=== PATIENT | male | born 1965 | race Caucasian/White ===

== ENCOUNTER 2016-12-16 06:13 | Emergency (ER) | payer BC ==
--- NOTE | 2016-12-16 06:39 | ER Document Report ---
ED GI/ - General Mode of Arrival: Ambulatory Information source: Patient TRAVEL OUTSIDE OF THE [place] IN LAST 30 DAYS: No - HPI Patient complains to provider of: Flank pain - Right Onset: Just prior to arrival Timing/Duration: Sudden Location: RLQ, Right flank Associated symptoms: None Similar symptoms previously: Yes <AWILDA RAYA - Last Filed: 12/16/16 15:54> <FAM MILES - Last Filed: 12/18/16 11:23> - General Chief Complaint: Abdominal Pain Stated Complaint: ABDOMINAL PAIN Time Seen by Provider: 12/16/16 06:32 Notes: Patient is a 51-year-old male that presents to the emergency department today with complaints of right-sided flank pain radiating around to RLQ. Patient states he has a history of kidney stones in the past and this feels identical to his previous stones. Patient states he was able to pass these stones without intervention. Patient states he was awoken from sleep around 0230 with the pain. Patient states he urinated and the pain became tolerable so he went back to sleep. Patient states he woke up again at 0400 because he was "going fishing with a geovanny this morning". Patient states he drank a cup of coffee and shortly after developed increasing right flank pain again. Patient denies any nausea or vomiting. (AWILDA RAYA) - Related Data Allergies/Adverse Reactions: No Known Allergies Allergy (Unverified 10/13/13 08:04) Past Medical History - General Information source: Patient, [facility] Records - Social History Smoking Status: Unknown if Ever Smoked Frequency of alcohol use: None Drug Abuse: None Lives with: Family Family History: Reviewed & Not Pertinent - Past Medical History Cardiac Medical History: Reports: Hx Hypertension Pulmonary Medical History: Reports: Hx COPD Endocrine Medical History: Reports: Hx Diabetes Mellitus Type 2 Renal/ Medical History: Reports: Hx Kidney Stones Surgical Hx: Negative - Immunizations Hx Diphtheria, Pertussis, Tetanus Vaccination: No <AWILDA RAYA - Last Filed: 12/16/16 15:54> Review of Systems - Review of Systems Constitutional: No symptoms reported EENT: No symptoms reported Cardiovascular: No symptoms reported Respiratory: No symptoms reported Gastrointestinal: denies: Nausea, Vomiting Genitourinary: See HPI, Flank pain - right Male Genitourinary: No symptoms reported Musculoskeletal: No symptoms reported Skin: No symptoms reported Hematologic/Lymphatic: No symptoms reported Neurological/Psychological: No symptoms reported -: Yes All other systems reviewed and negative <AWILDA RAYA - Last Filed: 12/16/16 15:54> Physical Exam <DOROTAKISHOREAWILDA - Last Filed: 12/16/16 15:54> <JDFAM - Last Filed: 12/18/16 11:23> - Vital signs Vitals: Pulse Resp BP Pulse Ox 55 L 20 157/93 H 98 12/16/16 09:41 12/16/16 09:41 12/16/16 09:41 12/16/16 09:41 - Notes Notes: Physical Exam: General: Alert, appears well. HEENT: Normocephalic. Atraumatic. PERRL. Extraocular movements intact. Oropharynx clear. Neck: Supple. Non-tender. Respiratory: No respiratory distress. Clear and equal breath sounds bilaterally. Cardiovascular: Regular rate and rhythm. Abdominal: Normal Inspection. Non-tender. No distension. Normal Bowel Sounds. Back: Non-tender. No deformity or step off. No flank tenderness with percussion. Extremities: Moves all four extremities. Upper extremities: Normal inspection. Normal ROM. Lower extremities: Normal inspection. No edema. Normal ROM. Neurological: Normal cognition. AAOx4. Normal speech. Psychological: Normal affect. Normal Mood. Skin: Warm. Dry. Normal color. (AWILDA RAYA) Course - Laboratory Result Diagrams: 12/16/16 06:25 <AWILDA RAYA - Last Filed: 12/16/16 15:54> - Laboratory Result Diagrams: 12/16/16 06:25 <FAM MILES - Last Filed: 12/18/16 11:23> - Re-evaluation Re-evalutation: 12/16/16 14:30 Presents emergency department chief complaint of right flank pain radiating down the right lower quadrant woke him up at 230 this morning. He said it came and went in and he actually went to his bodies has to go fishing around 4 AM and it recurred he received Toradol prior to my seeing him from that front and he says his pain is resolved right now. He reports a history of kidney stones that have not required a neurologist or any intervention. I see that he was here was 7 years ago he also had flank pain at that time that the CT of his this nonspecific hydronephrosis but no stone. He denies any fevers chills cough chest pain shortness of breath he does not have abdominal pain nausea vomiting diarrhea or urinary symptoms. He denies any low back pain or history of trauma. On examination he is well-appearing nontoxic no acute distress and states he is currently pain-free. Abdomen is soft no acute reproducible tenderness guarding rebound or rigidity. Femoral pulses are symmetrical peripheral pulses in distal extremities are palpable good perfusion no lower extremity edema calf tenderness swelling. He has no reproducible tenderness on the mid thoracic or lumbar spine. No paralumbar tenderness or reproducible flank tenderness bilaterally. Also has no skin lesions or evidence of shingles. Urinalysis is negative for infection patient declines any further medication. CT scan shows chronic hydro-nephrosis but no active stone. At this time he does not have urinary tract infection or active stone I do not think that this is an abdominal aortic aneurysm appendicitis or any other dangerous intra-abdominal pathology however I do want him to follow-up with primary care physician in 2-3 days gave him 80 to go pack of pain medications with the lives at home and discussed specifically with him and friends at the bedside reasons for ED return sooner (FAM MILES) - Vital Signs Vital signs: Temp Pulse Resp BP Pulse Ox 55 L 20 157/93 H 98 12/16/16 09:41 12/16/16 09:41 12/16/16 09:41 12/16/16 09:41 - Laboratory Laboratory results interpreted by me: 12/16/16 12/16/16 06:25 06:40 Carbon Dioxide 21 L BUN 24 H Glucose 172 H Urine Ketones TRACE H Urine Blood MODERATE H Urine Ascorbic Acid 40 H Discharge <AWILDA RAYA - Last Filed: 12/16/16 15:54> <FAM MILES - Last Filed: 12/18/16 11:23> - Discharge Clinical Impression: Flank pain Condition: Stable Disposition: HOME, SELF-CARE Additional Instructions: Flank Pain We weren't able to prove an exact cause for your flank pain. Pain in the flank can be caused by a muscle strain or spasm. Sometimes a kidney stone causes pain, but can't be found on our tests. Infection in the kidney should be evident on a urine test. Early shingles can occasionally cause flank pain, without the rash that proves the diagnosis. On rare occasions, disease of the pancreas, aorta, spleen, or colon can create pain in the flank. At this time, there's no evidence of a dangerous condition, and it seems safe for you to be at home. If the pain goes away and does not come back, no further testing will be needed. If pain persists, or becomes more severe, we may need to repeat some tests or order additional new testing. Blood in the urine, urgency to urinate frequently, and pain that radiates to the groin can indicate a kidney stone. Fever may mean that the pain is due to infection, either of the kidney or the colon (diverticulitis). If your pain is early shingles, you should develop an eruption of blisters in the painful area within a few days. Call the doctor or return if you have pain that is spreading or becoming more severe, pain that does not resolve with time, fever, or any other new symptoms. Referrals: [facility] [Provider Group] (call to be seen in follow up in 2-3 days return to er sooner for increasing worsening or new symptoms) Scribe Attestation: 12/16/16 07:31 I personally performed the services described in the documentation reviewed the documentation recorded by my scribe in my presence and it accurately and completely records my words and actions (FAM MILES) Scribe Documentation - Scribe Written by Jerman:: Jerman Adames, 12/16/2016 0721 acting as scribe for :: Jd <AWILDA RAYA - Last Filed: 12/16/16 15:54>
[2016-12-16 07:03] LABS: ANION GAP 12 (5-19); BLOOD UREA NITROGEN 24 mg/dL (7-20); CALCIUM 9.1 mg/dL (8.4-10.2); CARBON DIOXIDE 21 mmol/L (22-30); CHLORIDE 106 mmol/L (98-107); CREATININE RESULT 1.13 mg/dL (0.52-1.25); GLUCOSE 172 mg/dL (75-110); SODIUM 139.3 mmol/L (137-145)
--- NOTE | 2016-12-16 07:13 | RADIOLOGY REPORT (SQ) ---
EXAM DESCRIPTION: CT ABD/PELVIS NO ORAL OR IV COMPLETED DATE/TIME: 12/16/2016 6:59 am REASON FOR STUDY: flank pain COMPARISON: 02/04/2016. 02/02/2013. TECHNIQUE: CT scan of the abdomen and pelvis performed without intravenous or oral contrast. Images reviewed with lung, soft tissue, and bone windows. Reconstructed coronal and sagittal MPR images revi ewed. All images stored on PACS. All CT scanners at this facility use dose modulation, iterative reconstruction, and/or weight based d osing when appropriate to reduce radiation dose to as low as reasonably achievable (ALARA). [facility]: Dose Right [facility]: CareDose [facility]: Dose Right [facility]: Teradose 4D [facility]: [employer] RADIATION DOSE: Up-to-date CT equipment and radiation dose reduction techniques were employed. CTDIv ol: 16.5 mGy. DLP: 893 mGy-cm.mGy. LIMITATIONS: None. FINDINGS: LOWER CHEST: No significant findings. No nodules or infiltrates. NON-CONTRASTED LIVER, SPLEEN, ADRENALS: Evaluation limited by lack of IV contrast. No identified sign ificant masses. Moderate hepatic steatosis. PANCREAS: No masses. No peripancreatic inflammatory changes. GALLBLADDER: No identified stones by CT criteria. No inflammatory changes to suggest cholecystitis. RIGHT KIDNEY AND URETER: Punctate right nephrolithiasis. Mild chronic dilation of the right renal co llecting system since 2012. Mild right perinephric fat stranding. LEFT KIDNEY AND URETER: No suspicious masses. Assessment limited by lack of IV contrast. No signifi cant calcifications. No hydronephrosis or hydroureter. Mild perinephric fat stranding. AORTA AND RETROPERITONEUM: No aneurysm. No retroperitoneal masses or adenopathy. BOWEL AND PERITONEAL CAVITY: No obvious masses or inflammatory changes. No free fluid. APPENDIX: Normal. PELVIS, BLADDER, AND ABDOMINAL WALL:No abnormal masses. No free fluid. Bladder normal. Hysterectomy. BONES: Moderate desiccated disc bulge at the L4-S1 levels. OTHER: No other significant finding. IMPRESSION: Mild chronic dilation of the right renal collecting system. No acute findings. TECHNICAL DOCUMENTATION: JOB ID: [id number] Quality ID # 436: Final reports with documentation of one or more dose reduction techniques (e.g., Au tomated exposure control, adjustment of the mA and/or kV according to patient size, use of iterative reconstruction technique) 2011 [employer]- All Rights Reserved
[2016-12-16 07:19] LABS: APPEARANCE,URINE SLIGHTLY-CLOUDY; BILIRUBIN,URINE NEGATIVE (NEGATIVE); GLUCOSE, URINE NEGATIVE (NEGATIVE); KETONES,URINE TRACE mg/dL (NEGATIVE); LEUKOCYTE ESTERASE,URINE NEGATIVE (NEGATIVE); NITRITE,URINE NEGATIVE (NEGATIVE); PROTEIN,URINE NEGATIVE (NEGATIVE); URINE SPECIFIC GRAVITY 1.026; UROBILINOGEN,URINE NEGATIVE mg/dL (<2.0)
[2016-12-16 07:24] LABS: BACTERIA,URINE TRACE /HPF; RBC,URINE 20-30 /HPF
[2016-12-16] MEDS ORDERED: HYDROCODONE/ACETAMINOPHEN 5-325 MG 6 TAB/DSPK PO PRN (09:36)
[2016-12-16 09:41] VITALS: BP 157/93
== END 2016-12-16 10:03 | disposition home or self-care (01) ==
LOC: ER 06:13
DX: R10.9 Unspecified abdominal pain (principal); R10.31 Right lower quadrant pain
CPT/HCPCS: 36415; 74176; 80048; 81001; 99284

== ENCOUNTER → 2017-02-19 | Outpatient (CLI) | payer BC ==
--- NOTE | 2017-02-19 18:44 | RADIOLOGY REPORT (SQ) ---
EXAM DESCRIPTION: CT ABD/PELVIS NO ORAL OR IV COMPLETED DATE/TIME: 02/19/2017 6:27 pm REASON FOR STUDY: Unspecified abdominal pain COMPARISON: 12/16/2016 TECHNIQUE: CT scan of the abdomen and pelvis performed without intravenous or oral contrast. Images reviewed with lung, soft tissue, and bone windows. Reconstructed coronal and sagittal MPR images revi ewed. All images stored on PACS. All CT scanners at this facility use dose modulation, iterative reconstruction, and/or weight based d osing when appropriate to reduce radiation dose to as low as reasonably achievable (ALARA). [facility]: Dose Right [facility]: CareDose [facility]: Dose Right [facility]: Teradose 4D [facility]: [employer] RADIATION DOSE: Up-to-date CT equipment and radiation dose reduction techniques were employed. CTDIv ol: 16.4 mGy. DLP: 888 mGy-cm.mGy. LIMITATIONS: None. FINDINGS: LOWER CHEST: No significant findings. No nodules or infiltrates. NON-CONTRASTED LIVER, SPLEEN, ADRENALS: Evaluation limited by lack of IV contrast. No identified sign ificant masses. PANCREAS: No masses. No peripancreatic inflammatory changes. GALLBLADDER: No identified stones by CT criteria. No inflammatory changes to suggest cholecystitis. RIGHT KIDNEY AND URETER: No suspicious masses. Assessment limited by lack of IV contrast. Small non obstructive calculus. There is chronic mild hydronephrosis and hydroureter to the UV junction. No definitive calculus. Noncalcified calculus is possible. Tumor is also differential. LEFT KIDNEY AND URETER: No suspicious masses. Assessment limited by lack of IV contrast. No signifi cant calcifications. No hydronephrosis or hydroureter. AORTA AND RETROPERITONEUM: No aneurysm. No retroperitoneal masses or adenopathy. BOWEL AND PERITONEAL CAVITY: No obvious masses or inflammatory changes. No free fluid. APPENDIX: Normal. PELVIS, BLADDER, AND ABDOMINAL WALL:No abnormal masses. No free fluid. Bladder normal. BONES: No significant findings. OTHER: Chronic mild hydronephrosis and hydroureter IMPRESSION: Chronic mild hydronephrosis without a definitive calculus. Differential is noncalcified stone versus tumor at the right UV junction TECHNICAL DOCUMENTATION: JOB ID: [id number] Quality ID # [id number]: Final reports with documentation of one or more dose reduction techniques (e.g., Au tomated exposure control, adjustment of the mA and/or kV according to patient size, use of iterative reconstruction technique) 2010 [employer]- All Rights Reserved
== END ==
LOC: RAD 18:06
PROVIDERS: ATTEND Physician Assistant
DX: R10.9 Unspecified abdominal pain (principal); N13.30 Unspecified hydronephrosis
CPT/HCPCS: 74176

== ENCOUNTER → 2017-04-10 | Outpatient (CLI) | payer BC ==
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
== END ==
LOC: RAD 15:07
PROVIDERS: ATTEND Urology
DX: R31.0 Gross hematuria (principal)
CPT/HCPCS: 74178; 82565

== ENCOUNTER 2018-09-14 13:35 | Emergency (ER) | payer BC ==
[2018-09-14] MEDS ORDERED: DIPH/PERTUSS(ACELL)/TETANUS VAC/PF 0.5 ML SYR (>=10YO) IM ONE (13:58)
[2018-09-14] MEDS ORDERED: RINGERS SOLUTION,LACTATED 1,000 ML IV ONE (13:58)
[2018-09-14] MEDS ORDERED: ONDANSETRON HCL INJ/PF 4 MG/2 ML SDV IV ONE (13:59)
[2018-09-14] MEDS ORDERED: HYDROMORPHONE HCL INJ/PF 2 MG/ML AMPULE IV ONE ×3 (13:59→17:00)
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
[2018-09-14 19:31] VITALS: BP 156/95
== END 2018-09-14 17:03 | disposition short-term general hospital (02) ==
LOC: ER 13:35
DX: T20.20XA Burn of second degree of head, face, and neck, unspecified site, initial encounter (principal); T20.17XA Burn of first degree of neck, initial encounter; T22.211A Burn of second degree of right forearm, initial encounter; T22.212A Burn of second degree of left forearm, initial encounter; X03.8XXA Other exposure to controlled fire, not in building or structure, initial encounter; Y93.G2 Activity, grilling and smoking food; E11.9 Type 2 diabetes mellitus without complications; I10 Essential (primary) hypertension; Z87.442 Personal history of urinary calculi; Z23 Encounter for immunization
CPT/HCPCS: 96376; 99291; 96361; 90471; 96374; 96375; 90715; J1170; J2405; J7120

== ENCOUNTER 2019-07-26 19:29 | Emergency (ER) | payer SELFPAY ==
[2019-07-26] MEDS ORDERED: NORMAL SALINE 1000 ML 1,000 ML IV ONE ×2 (20:18→20:50)
--- NOTE | 2019-07-26 20:19 | ER Document Report ---
ED Medical Screen (RME) - General Chief Complaint: Chest Pain Stated Complaint: CHEST PAIN.BLURRY VISION,BLOOD PRESSURE ISSUE Time Seen by Provider: 07/26/19 20:07 Primary Care Provider: ALESSANDRA ANN MD [Primary Care Provider] - Follow up as needed Mode of Arrival: Ambulatory Information source: Patient Notes: 53-year-old male presents with complaints of chest pain, nausea, not feeling well, urinary frequency increased thirst blurred vision for the past 2 months worsening for the past couple days. Gives history of diagnosis of diabetes with high blood pressure 5 years ago. Reports he was placed on some medications that shut his kidneys down so he quit taking them. He is not taking any medication now. Reports he is a former smoker quit 5 years ago when he was diagnosed with diabetes and high blood pressure. Accu-Chek done and Pit is 434. I have greeted and performed a rapid initial assessment of this patient. A comprehensive ED assessment and evaluation of the patient, analysis of test results and completion of the medical decision making process will be conducted by additional ED providers. TRAVEL OUTSIDE OF THE [place] IN LAST 30 DAYS: No - Related Data Allergies/Adverse Reactions: No Known Allergies Allergy (Verified 07/26/19 20:05) Past Medical History - Past Medical History Cardiac Medical History: Reports: Hx Hypertension Pulmonary Medical History: Reports: Hx COPD Endocrine Medical History: Reports: Hx Diabetes Mellitus Type 2 Renal/ Medical History: Reports: Hx Kidney Stones. Denies: Hx Peritoneal Dialysis - Immunizations Hx Diphtheria, Pertussis, Tetanus Vaccination: No Physical Exam - Vital signs Vitals: Temp Pulse Resp BP Pulse Ox 98.3 F 84 18 163/96 H 96 07/26/19 19:55 07/26/19 19:55 07/26/19 19:55 07/26/19 19:55 07/26/19 19:55 Course - Vital Signs Vital signs: Temp Pulse Resp BP Pulse Ox 98.3 F 84 18 163/96 H 96 07/26/19 19:55 07/26/19 19:55 07/26/19 19:55 07/26/19 19:55 07/26/19 19:55 Doctor's Discharge - Discharge Referrals: ALESSANDRA ANN MD [Primary Care Provider] - Follow up as needed
--- NOTE | 2019-07-26 20:51 | ER Document Report ---
ED General - General Chief Complaint: Chest Pain Stated Complaint: CHEST PAIN.BLURRY VISION,BLOOD PRESSURE ISSUE Time Seen by Provider: 07/26/19 20:07 Primary Care Provider: ALESSANDRA ANN MD [NO LOCAL MD] - Follow up as needed Mode of Arrival: Ambulatory TRAVEL OUTSIDE OF THE [place] IN LAST 30 DAYS: No - HPI Notes: Patient is a 53-year-old gentleman who presents to the emergency department for evaluation of chest pain, blurred vision, uncontrolled blood pressure, and high blood sugar. The patient has a diagnosis of hypertension and diabetes. He used to be seen by a provider who has since moved out of the area. He states he was treated with medications that caused his "kidneys to fail." He states that since then he has not had any sort of treatment for either these conditions. He states that over the last month or so he has had blurred vision, increased urination, weakness, bilateral arm pain. He states he has had intermittent "grabbing" pains in the left side of his chest. They only last a second. They are not brought about by exertion, not relieved by rest. They happen nearly daily. He states he feels slightly nauseated when they happen but denies any other associated symptoms. - Related Data Allergies/Adverse Reactions: No Known Allergies Allergy (Verified 07/26/19 20:05) Home Medications: None Past Medical History - General Information source: Patient - Social History Smoking Status: Former Smoker Family History: Reviewed & Not Pertinent, Malignancy Patient has suicidal ideation: No Patient has homicidal ideation: No - Past Medical History Cardiac Medical History: Reports: Hx Hypertension Pulmonary Medical History: Reports: Hx COPD Endocrine Medical History: Reports: Hx Diabetes Mellitus Type 2 Renal/ Medical History: Reports: Hx Kidney Stones. Denies: Hx Peritoneal Dialysis - Immunizations Hx Diphtheria, Pertussis, Tetanus Vaccination: No Review of Systems - Review of Systems Constitutional: See HPI EENT: See HPI Cardiovascular: See HPI Respiratory: See HPI Gastrointestinal: See HPI Genitourinary: No symptoms reported Musculoskeletal: See HPI Skin: No symptoms reported Neurological/Psychological: No symptoms reported Physical Exam - Vital signs Vitals: Temp Pulse Resp BP Pulse Ox 98.3 F 84 18 163/96 H 96 07/26/19 19:55 07/26/19 19:55 07/26/19 19:55 07/26/19 19:55 07/26/19 19:55 - Notes Notes: Vital signs reviewed, please refer to chart. Head is normocephalic, atraumatic. Pupils equal round, reactive to light. Neck is supple without meningismus. Heart is regular rate and rhythm. Lungs are clear to auscultation bilaterally. Abdomen is soft, nontender, normoactive bowel sounds throughout. Extremities without cyanosis, clubbing. Posterior calves are nontender. Peripheral pulses are equal. Skin is warm and dry. Patient is awake, alert, oriented x3. Cranial nerves II - XII are grossly intact without focal neurological deficits. Strength is plus 5 out of 5 bilateral upper and lower extremities. Sensation is intact. Reflexes symmetrical. Intact [id number], rapid alternating movements, [id number]. Course - Re-evaluation Re-evalutation: 07/26/19 23:29 Patient presents to the emergency department for evaluation. He has a history of high blood pressure, diabetes, has been off treatment for some time. His symptoms are most consistent with hypoglycemia. He does have elevated blood pressure. His chest pain would be atypical. He certainly, however, has significant risk factors. He was explained to the patient that he needs follow- up in regards to the chest pain, but his work-up. In regards to the possibility of acute coronary syndrome present at this time is negative. He voiced und erstanding to this. Otherwise he is found to be hyperglycemic but not hyperosmolar, normal neurological exam, and not acidotic. His sugar is treated with insulin, fluids. Will start the patient on glipizide and hydrochlorothiazide. He is to follow-up closely with primary care, return to the ED with worsening or new concerning symptoms of any sort. - Vital Signs Vital signs: Temp Pulse Resp BP Pulse Ox 98.3 F 84 13 127/80 H 98 07/26/19 19:55 07/26/19 19:55 07/26/19 23:01 07/26/19 23:01 07/26/19 23:01 - Laboratory Result Diagrams: 07/26/19 21:16 07/26/19 21:16 Laboratory results interpreted by me: 07/26/19 07/26/19 07/26/19 20:01 21:16 22:34 Sodium 133.6 L BUN 26 H Glucose 428 H* POC Glucose 336 H Alkaline Phosphatase 151 H Urine Glucose (UA) >=500 H - Diagnostic Test Radiology reviewed: Reports reviewed Radiology results interpreted by me: 07/26/19 23:31 Chest X-Ray 07/26/19 20:14 IMPRESSION: No active intrathoracic disease. No adverse change copyright 2011 [employer]- All Rights Reserved - EKG Interpretation by Me Additional EKG results interpreted by me: 07/26/19 23:32 Sinus mechanism with a rate of 85 bpm. Normal axis and intervals. No acute ST changes concerning for ischemia or infarction. Discharge - Discharge Clinical Impression: Essential hypertension Hyperglycemia due to type 2 diabetes mellitus Qualifiers: Diabetes mellitus intermediate manager insulin use: without residential use Qualified Code(s): E11.65 - Type 2 diabetes mellitus with hyperglycemia Condition: Stable Disposition: HOME, SELF-CARE Instructions: Chest Pain of Unclear Cause ([facility]), Hyperglycemia ([facility]), Diabetes ([facility]) Additional Instructions: Please take medications as prescribed. Rest, stay well-hydrated. Avoid simple sugars as discussed. You need to follow-up with primary care in 1 to 2 weeks. Please keep a record of your blood pressures, bring them to your first primary care provider appointment. Return to the emergency department if you develop worsening or new concerning symptoms of any sort. Referrals: ALESSANDRA ANN MD [NO LOCAL MD] - Follow up as needed
--- NOTE | 2019-07-26 21:06 | RADIOLOGY REPORT (SQ) ---
EXAM DESCRIPTION: XR CHEST 2 VIEWS COMPLETED DATE/TME: 07/26/2019 20:14 CLINICAL HISTORY: 53 years, Male, cp COMPARISON: October 11, 2014 NUMBER OF VIEWS: 2 TECHNIQUE: LIMITATIONS: None. FINDINGS: Cardiomediastinal silhouette is normal. Mild chronic parenchymal lung change. No consolidation. No effusion or pneumothorax. IMPRESSION: No active intrathoracic disease. No adverse change copyright 2010 [employer]- All Rights Reserved
[2019-07-26 21:09] LABS: APPEARANCE,URINE CLEAR; BILIRUBIN,URINE NEGATIVE (NEGATIVE); COLOR,URINE STRAW; GLUCOSE, URINE >=500 mg/dL (NEGATIVE); KETONES,URINE NEGATIVE (NEGATIVE); LEUKOCYTE ESTERASE,URINE NEGATIVE (NEGATIVE); NITRITE,URINE NEGATIVE (NEGATIVE); PROTEIN,URINE NEGATIVE (NEGATIVE); URINE SPECIFIC GRAVITY 1.028; UROBILINOGEN,URINE NEGATIVE mg/dL (<2.0)
[2019-07-26 21:29] LABS: ABSOLUTE BASOPHILS # (AUTO) 0.1 10^3/uL (0.0-0.2); ABSOLUTE EOSINOPHILS # (AUTO) 0.1 10^3/uL (0.0-0.6); ABSOLUTE LYMPHOCYTES (AUTO) 3.1 10^3/uL (0.5-4.7); ABSOLUTE MONOCYTES (AUTO) 0.5 10^3/uL (0.1-1.4); ABSOLUTE NEUT (AUTO) 3.3 10^3/uL (1.7-8.2); BASOPHILS % (AUTO) 1.4 % (0-2); EOSINOPHILS % (AUTO) 1.3 % (0-6); HEMATOCRIT 44.4 % (37.9-51.0); HEMOGLOBIN 15.3 g/dL (13.5-17.0); LYMPHOCYTES % (AUTO) 43.1 % (13-45); MEAN CORPUSCULAR HEMOGLOBIN 30.8 pg (27.0-33.4); MEAN CORPUSCULAR HGB CONC 34.3 g/dL (32.0-36.0); MEAN CORPUSCULAR VOLUME 90 fl (80-97); MONOCYTES % (AUTO) 7.6 % (3-13); PLATELET COUNT 222 10^3/uL (150-450); RED BLOOD COUNT 4.96 10^6/uL (4.35-5.55); RED CELL DISTRIBUTION WIDTH 12.6 % (11.5-14.0); SEGMENTED NEUTROPHILS % (AUTO) 46.6 % (42-78); TOTAL CELLS COUNTED % (AUTO) 100 %; WHITE BLOOD COUNT 7.1 10^3/uL (4.0-10.5)
[2019-07-26 21:53] LABS: VENOUS BLOOD BASE EXCESS -4.9 mmol/L; VENOUS BLOOD HCO3 20.2 mmol/L (20-32); VENOUS BLOOD PCO2 38.1 mmHg (35-63); VENOUS BLOOD PH 7.34 (7.30-7.42)
[2019-07-26 21:57] LABS: ALBUMIN 4.4 g/dL (3.5-5.0); ALKALINE PHOSPHATASE 151 U/L (38-126); ANION GAP 12 (5-19); ASPARTATE AMINO TRANSFERASE 38 U/L (17-59); BILIRUBIN,DIRECT 0.1 mg/dL (0.0-0.4); BILIRUBIN,TOTAL 0.4 mg/dL (0.2-1.3); BLOOD UREA NITROGEN 26 mg/dL (7-20); CALCIUM 9.8 mg/dL (8.4-10.2); CARBON DIOXIDE 23 mmol/L (22-30); CHLORIDE 99 mmol/L (98-107); POTASSIUM 4.6 mmol/L (3.6-5.0); TOTAL PROTEIN 7.5 g/dL (6.3-8.2)
[2019-07-26 22:09] LABS: GLUCOSE 428 mg/dL (75-110)
[2019-07-26] MEDS ORDERED: HYDROCHLOROTHIAZIDE 25 MG TABLET PO ONE (22:56)
[2019-07-26] MEDS ORDERED: INSULIN REG, HUMAN 100 UNIT/ML 3 ML VIAL (PYX) IV ONE (22:56)
--- NOTE | 2019-07-26 23:37 | EKG REPORT ---
SEVERITY:- BORDERLINE ECG - SINUS RHYTHM PROBABLE LEFT ATRIAL ABNORMALITY : Confirmed by: Lo Montes 26-Jul-2019 23:36:36
[2019-07-27 00:12] VITALS: BP 142/88
== END 2019-07-27 00:21 | disposition home or self-care (01) ==
LOC: ER 19:29
DX: E11.65 Type 2 diabetes mellitus with hyperglycemia (principal); I10 Essential (primary) hypertension; H53.8 Other visual disturbances; R07.9 Chest pain, unspecified; Z87.891 Personal history of nicotine dependence; J44.9 Chronic obstructive pulmonary disease, unspecified
CPT/HCPCS: 93005; 99285; 96360; 96361; 36415; 82962; 85025; 80053; 81001; 84484; 82803; 71046; 93010; J1815; J7030

== ENCOUNTER → 2019-08-25 | Outpatient (CLI) | payer OTHER ==
[2019-08-25 11:35] LABS: ABSOLUTE BASOPHILS # (AUTO) 0.1 10^3/uL (0.0-0.2); ABSOLUTE EOSINOPHILS # (AUTO) 0.1 10^3/uL (0.0-0.6); ABSOLUTE LYMPHOCYTES (AUTO) 2.7 10^3/uL (0.5-4.7); ABSOLUTE MONOCYTES (AUTO) 0.4 10^3/uL (0.1-1.4); ABSOLUTE NEUT (AUTO) 2.7 10^3/uL (1.7-8.2); BASOPHILS % (AUTO) 0.9 % (0-2); HEMATOCRIT 44.8 % (37.9-51.0); HEMOGLOBIN 15.6 g/dL (13.5-17.0); LYMPHOCYTES % (AUTO) 45.7 % (13-45); MEAN CORPUSCULAR HEMOGLOBIN 31.3 pg (27.0-33.4); MEAN CORPUSCULAR HGB CONC 34.7 g/dL (32.0-36.0); MEAN CORPUSCULAR VOLUME 90 fl (80-97); MONOCYTES % (AUTO) 6.8 % (3-13); PLATELET COUNT 244 10^3/uL (150-450); RED BLOOD COUNT 4.98 10^6/uL (4.35-5.55); RED CELL DISTRIBUTION WIDTH 12.9 % (11.5-14.0); SEGMENTED NEUTROPHILS % (AUTO) 44.6 % (42-78); TOTAL CELLS COUNTED % (AUTO) 100 %
[2019-08-25 11:58] LABS: ALBUMIN 4.9 g/dL (3.5-5.0); ANION GAP 9 (5-19); BILIRUBIN,TOTAL 0.8 mg/dL (0.2-1.3); BLOOD UREA NITROGEN 23 mg/dL (7-20); CALCIUM 9.8 mg/dL (8.4-10.2); CARBON DIOXIDE 27 mmol/L (22-30); CHLORIDE 102 mmol/L (98-107); CHOLESTEROL 214.67 mg/dL (0-200); GLUCOSE 121 mg/dL (75-110); NEONATAL BILIRUBIN RESULT 0.8 mg/dL (0.1-1.1); POTASSIUM 4.8 mmol/L (3.6-5.0); TOTAL PROTEIN 8.1 g/dL (6.3-8.2); TRIGLYCERIDES 59 mg/dL (<150)
[2019-08-25 12:03] LABS: ASPARTATE AMINO TRANSFERASE 42 U/L (17-59)
[2019-08-25 12:04] LABS: ALKALINE PHOSPHATASE 61 U/L (38-126)
[2019-08-25 12:10] LABS: DIRECT LDL 149 mg/dL (<100)
== END ==
LOC: CCC 11:01
DX: I10 Essential (primary) hypertension (principal); E11.8 Type 2 diabetes mellitus with unspecified complications
CPT/HCPCS: 36415; 80053; 80061; 83036; 83735; 84443; 85025

== ENCOUNTER → 2020-03-03 | Outpatient (CLI) | payer OTHER ==
[2020-03-03 08:03] LABS: ABSOLUTE BASOPHILS # (AUTO) 0.1 10^3/uL (0.0-0.2); ABSOLUTE EOSINOPHILS # (AUTO) 0.2 10^3/uL (0.0-0.6); ABSOLUTE LYMPHOCYTES (AUTO) 2.7 10^3/uL (0.5-4.7); ABSOLUTE MONOCYTES (AUTO) 0.4 10^3/uL (0.1-1.4); ABSOLUTE NEUT (AUTO) 2.7 10^3/uL (1.7-8.2); BASOPHILS % (AUTO) 1.1 % (0-2); EOSINOPHILS % (AUTO) 2.6 % (0-6); HEMATOCRIT 39.8 % (37.9-51.0); HEMOGLOBIN 13.8 g/dL (13.5-17.0); LYMPHOCYTES % (AUTO) 44.3 % (13-45); MEAN CORPUSCULAR HEMOGLOBIN 31.5 pg (27.0-33.4); MEAN CORPUSCULAR HGB CONC 34.6 g/dL (32.0-36.0); MEAN CORPUSCULAR VOLUME 91 fl (80-97); PLATELET COUNT 242 10^3/uL (150-450); RED BLOOD COUNT 4.37 10^6/uL (4.35-5.55); RED CELL DISTRIBUTION WIDTH 12.7 % (11.5-14.0); TOTAL CELLS COUNTED % (AUTO) 100 %; WHITE BLOOD COUNT 6.1 10^3/uL (4.0-10.5)
[2020-03-03 08:11] LABS: APPEARANCE,URINE CLEAR; BILIRUBIN,URINE NEGATIVE (NEGATIVE); COLOR,URINE YELLOW; GLUCOSE, URINE NEGATIVE (NEGATIVE); KETONES,URINE NEGATIVE (NEGATIVE); LEUKOCYTE ESTERASE,URINE NEGATIVE (NEGATIVE); NITRITE,URINE NEGATIVE (NEGATIVE); PROTEIN,URINE NEGATIVE (NEGATIVE); URINE SPECIFIC GRAVITY 1.021; UROBILINOGEN,URINE NEGATIVE mg/dL (<2.0)
[2020-03-03 09:30] LABS: ALKALINE PHOSPHATASE 56 U/L (38-126); ANION GAP 6 (5-19); ASPARTATE AMINO TRANSFERASE 25 U/L (17-59); BILIRUBIN,DIRECT 0.3 mg/dL (0.0-0.4); BILIRUBIN,TOTAL 0.5 mg/dL (0.2-1.3); BLOOD UREA NITROGEN 17 mg/dL (7-20); CALCIUM 8.9 mg/dL (8.4-10.2); CARBON DIOXIDE 25 mmol/L (22-30); CHLORIDE 109 mmol/L (98-107); CHOLESTEROL 192.42 mg/dL (0-200); GLUCOSE 151 mg/dL (75-110); POTASSIUM 4.5 mmol/L (3.6-5.0); TOTAL PROTEIN 6.7 g/dL (6.3-8.2); TRIGLYCERIDES 93 mg/dL (<150)
[2020-03-03 09:41] LABS: DIRECT LDL 116 mg/dL (<100)
== END ==
LOC: CCC 07:19
PROVIDERS: ATTEND Family Medicine
DX: Z13.9 Encounter for screening, unspecified (principal)
CPT/HCPCS: 36415; 80053; 80061; 81001; 83036; 84443; 85025